=== PATIENT | female | born 1985 | race Caucasian/White ===

== ENCOUNTER 2016-12-27 12:59 | Emergency (ER) | payer SELFPAY ==
[2016-12-27 13:12] VITALS: BP 102/58
[2016-12-27] MEDS ORDERED: Ketorolac INJ* 60 MG/2 ML VIAL IM ONE (13:24)
--- NOTE | 2016-12-27 13:34 | UC ---
Abdominal Pain Female HPI - HPI Summary HPI Summary: 4 days of abd pain mid epigastric ruq pain, nausea and vomiting after eating and pain worsening with food, no fevers, decrease void and dark color - History of Current Complaint Chief Complaint: UCAbdominalPain Stated Complaint: ABDOMINAL PAIN Time Seen by Provider: 12/27/16 13:17 Hx Obtained From: Patient Hx Last Menstrual Period: 12/20/16 ?: No Onset/Duration: Sudden Onset, Lasting Days - 4 Timing: Constant Severity Initially: Moderate Severity Currently: Severe Pain Intensity: 10 Pain Scale Used: 0-10 Numeric Location: Discrete At: RUQ, Epigastric Radiates: No Character: Aching, Colicy Aggravating Factor(s): Food Alleviating Factor(s): Vomiting Associated Signs and Symptoms: Positive: Nausea, Vomiting Allergies/Adverse Reactions: Allergies Allergy/AdvReac Type Severity Reaction Status Date / Time No Known Allergies Allergy Verified 04/26/13 12:33 PMH/Surg Hx/FS Hx/Imm Hx Previously Healthy: Yes - Surgical History Surgical History: Yes Surgery Procedure, Year, and Place: biopsy of cervix mar 2013 - Family History Known Family History: Positive: None - Social History Occupation: Unemployed Lives: With Family Alcohol Use: Rare Substance Use Type: None Smoking Status (MU): Never Smoked Tobacco - Immunization History Most Recent Influenza Vaccination: Season Review of Systems Constitutional: Negative Skin: Negative Eyes: Negative ENT: Negative Respiratory: Negative Cardiovascular: Negative Gastrointestinal: Abdominal Pain, Vomiting, Nausea Genitourinary: Negative Motor: Negative Neurovascular: Negative Musculoskeletal: Negative Neurological: Negative Psychological: Negative Is Patient Immunocompromised?: No All Other Systems Reviewed And Are Negative: Yes Physical Exam Triage Information Reviewed: Yes Appearance: Ill-Appearing, Pain Distress, Thin Vital Signs: Initial Vital Signs Temp 98.1 F 12/27/16 13:03 Pulse 78 12/27/16 13:03 Resp 18 12/27/16 13:03 BP 102/58 12/27/16 13:03 Pulse Ox 100 12/27/16 13:03 Vital Signs Reviewed: Yes Eye Exam: Normal Eyes: Positive: Conjunctiva Clear ENT Exam: Normal ENT: Positive: Normal ENT inspection, Hearing grossly normal, Pharynx normal. Negative: Nasal congestion, Nasal drainage, Trismus, Muffled/hoarse voice Dental Exam: Normal Neck exam: Normal Neck: Positive: Supple, Nontender, No Lymphadenopathy Respiratory Exam: Normal Respiratory: Positive: Chest non-tender, Lungs clear, Normal breath sounds, No respiratory distress, No accessory muscle use Cardiovascular Exam: Normal Cardiovascular: Positive: RRR, No Murmur, Pulses Normal, Brisk Capillary Refill Abdominal Exam: Normal Abdomen Description: Positive: No Organomegaly, Soft. Negative: CVA Tenderness (R), CVA Tenderness (L) Bowel Sounds: Positive: Present Musculoskeletal Exam: Normal Musculoskeletal: Positive: Strength Intact, ROM Intact Neurological Exam: Normal Neurological: Positive: Alert, Muscle Tone Normal Psychological Exam: Normal Skin Exam: Normal Diagnostics - Laboratory Diagnostic Studies Completed/Ordered: ua + for bili, urobili, ketones, heme, leukoesterace (-) preg Abd Pain Female Course/Dx - Course Course Of Treatment: NPO, to [facility] [place] for further evaluation of abdomen pain - Differential Dx/Diagnosis Provider Diagnoses: Acute abdomen pain Discharge - Discharge Plan Condition: Stable Disposition: OTHER Discharge Disposition Comment: to [facility] [place] ED by private car Patient Education Materials: Acute Abdominal Pain (ED) Referrals: No Primary Care Phys,NOPCP [Primary Care Provider] - Additional Instructions: Please go directly to the [facility] Emergency Department For further care
== END 2016-12-27 14:10 ==
LOC: UCEAST 12:59
DX: R10.9 Unspecified abdominal pain (principal)
CPT/HCPCS: 81003; 84702; 87086; 99202; G0463; J1885

== ENCOUNTER 2016-12-27 15:11 | Inpatient (IN) | payer SELFPAY ==
[2016-12-27] MEDS ORDERED: Ondansetron INJ* 2 MG/ML VIAL IV ONE ×2 (15:58→19:28)
[2016-12-27] MEDS: NS 0.9% 1000 ML* 2,000 ML IV ONE (16:16)
[2016-12-27 16:41] LABS: Urine Bacteria Absent (Absent); Urine Bilirubin 2+ (Negative); Urine Glucose Negative (Negative); Urine Nitrite Negative (Negative)
[2016-12-27 16:44] LABS: Albumin 3.8 g/dL (3.2-5.2); Alkaline Phosphatase 352 U/L (34-104); Anion Gap 9 mmol/L (2-11); Blood Urea Nitrogen 12 mg/dL (6-24); C Reactive Protein 26.76 mg/L (< 5.00); CO2 Carbon Dioxide 28 mmol/L (22-32); Chloride 101 mmol/L (101-111); EGFR African American 91.6 (>60); EGFR Non-African American 71.2 (>60); Globulin 3.1 g/dL (2-4); Glucose 103 mg/dL (70-100); Lipase 178 U/L (11.0-82.0); Magnesium 1.7 mg/dL (1.9-2.7); Potassium 3.8 mmol/L (3.5-5.0); Sodium 138 mmol/L (133-145); Total Protein 6.9 g/dL (6.4-8.9)
[2016-12-27] MEDS ORDERED: Morphine INJ* 4 MG/ML 1 ML CARPUJECT IV ONE ×2 (16:45→18:32)
[2016-12-27] MEDS ORDERED: Magnesium Sulfate 2 GM IV* 2 GM/50 ML BAG IVPB ONE (16:45)
[2016-12-27 16:48] LABS: Add Diff/Slide Review? Manual Diff Added; Comments Flag Yes; Hematocrit 35 % (35-47); Hemoglobin 11.3 g/dl (12.0-16.0); Mean Corpuscular HGB Conc 33 g/dl (31-36); Mean Corpuscular Hemoglobin 25 pg (27-31); Mean Corpuscular Volume 75 fL (80-97); Mean Platelet Volume 7 um3 (7.4-10.4); Red Blood Count 4.59 10^6/ul (4.0-5.4); Red Cell Distribution Width 17 % (10.5-15); White Blood Count 5.2 10^3/ul (3.5-10.8)
[2016-12-27 17:00] LABS: ALT 1405 U/L (7-52); AST 1151 U/L (13-39)
[2016-12-27 17:20] LABS: Add Path Review? YES; Eosinophils % 1 % (0-6); Hypochromasia 1+; Immature Granulocytes 15 % (0-9); Microcytosis 1+; Neutrophil % 52 % (38-83); Reactive Lymph % 4 % (0-6)
--- NOTE | 2016-12-27 19:12 | RAD ---
HISTORY: Right upper quadrant pain. COMPARISONS: CT abdomen pelvis July 06, 2012 TECHNIQUE: Multiple transverse and longitudinal ultrasound images were obtained of the right upper quadrant. FINDINGS: LIVER: The liver is normal in dimensions and echogenicity. Normal hepatic and portal venous blood flow is duplicated with color flow imaging. There is no gross intrahepatic biliary duct dilatation. GALLBLADDER AND EXTRAHEPATIC BILIARY DUCT: The gallbladder appears to be contracted. There are heterogeneous and thickened fernandez measuring up to 2 cm in thickness. There is pericholecystic fluid. There are no stones or biliary sludge identified in the gallbladder lumen. The common bile duct measures a maximum diameter of 4 mm. PANCREAS: The portions of the pancreas not obscured by bowel gas are normal in appearance. RIGHT KIDNEY: The right kidney is normal in size, morphology and echogenicity. IMPRESSION: SONOGRAPHIC FINDINGS ARE MOST INDICATIVE OF ACALCULOUS CHOLECYSTITIS. CLINICALLY WARRANTED FURTHER CHARACTERIZATION COULD BE MADE WITH A HIDA SCAN.
[2016-12-27] MEDS ORDERED: HYDROmorphone INJ* 1 MG/ML CARPUJECT SYRINGE IV SLOW PU ONE (19:28)
[2016-12-27] MEDS ORDERED: Acetaminophen TAB* 325 MG PO PRN (19:30)
--- NOTE | 2016-12-27 19:34 | ED ---
Johnson Fallon Rebecca, scribed for Lyndsay Candelaria MD on 12/27/16 at 1630 . Abdominal Pain/Female - HPI Summary HPI Summary: Pt is a 31 y/o F who presents to ED referred from [facility] c/o abdominal pain for 4 days. Pain is in the RUQ and is currently moderate, ranked 7/10. Sx aggravated by food, alleviated by nothing. Additionally c/o decreased PO intake , abdominal bloating and vomiting. Pt reports vomiting every time that she tries to eat. FHx gallbladder disease (mother). - History of Current Complaint Chief Complaint: EDAbdPain Stated Complaint: ABD PAIN/DARK URINE Time Seen by Provider: 12/27/16 16:20 Hx Obtained From: Patient Hx Last Menstrual Period: 12/20/16 Onset/Duration: Lasting Days - 4 days, Still Present Severity Currently: Moderate Pain Intensity: 7 Pain Scale Used: 0-10 Numeric Location: Discrete At: RUQ Aggravating Factor(s): Food Alleviating Factor(s): Nothing Associated Signs and Symptoms: Positive: Vomiting, Other: - Decreased PO intake , abdominal bloating Allergies/Adverse Reactions: Allergies Allergy/AdvReac Type Severity Reaction Status Date / Time No Known Allergies Allergy Verified 04/26/13 12:33 PMH/Surg Hx/FS Hx/Imm Hx Endocrine/Hematology History: Denies: Hx Diabetes, Hx Thyroid Disease Cardiovascular History: Denies: Hx Hypertension Respiratory History: Denies: Hx Asthma, Hx Chronic Obstructive Pulmonary Disease (COPD) GI History: Denies: Hx Ulcer - Surgical History Surgery Procedure, Year, and Place: biopsy of cervix mar 2013 Infectious Disease History: No Infectious Disease History: Denies: Hx Clostridium Difficile, Hx Hepatitis, Hx Human Immunodeficiency Virus (HIV), Hx of Known/Suspected MRSA, Hx Shingles, Hx Tuberculosis, Hx Known/ Suspected VRE, Hx Known/Suspected VRSA, History Other Infectious Disease, Traveled Outside the [place] in Last 30 Days - Family History Known Family History: Positive: Other - Gallbladder disease (mother) - Social History Alcohol Use: Rare Substance Use Type: Reports: None Smoking Status (MU): Never Smoked Tobacco Review of Systems Negative: Fever Positive: Abdominal Pain, Vomiting, Other - Decreased PO intake, abdominal bloating All Other Systems Reviewed And Are Negative: Yes Physical Exam - Summary Physical Exam Summary: General: Mildly ill-appearing, mild pain distress Skin: Warm, Skin Color Reflects Adequate Perfusion, Dry Eyes: EOMI, JULI ENT: Pharynx normal, TMs normal Neck: Supple, nontender Respiratory: CTA, breath sounds present, no rhonchi, no wheezes, no rales Cardiovascular: RRR, no murmur, no rub, no gallop, Abdomen: Soft, RUQ and epigastric pain, Non-distended, no guarding, no rebound Bowel: Present Musculoskeletal: VALORIE, No edema Neuro: Sensory/motor intact, A&Ox3, CN intact 2-12 Psych: Affect/mood appropriate Triage Information Reviewed: Yes Vital Signs On Initial Exam: Initial Vitals Temp Pulse Resp BP Pulse Ox 98.2 F 77 15 112/69 100 12/27/16 15:13 12/27/16 15:13 12/27/16 15:13 12/27/16 15:13 12/27/16 15:13 Vital Signs Reviewed: Yes - Raysa Coma Scale Coma Scale Total: 15 Diagnostics - Vital Signs Vital Signs Temp Pulse Resp BP Pulse Ox 12/27/16 15:13 98.2 F 77 15 112/69 100 - Laboratory Lab Results: Lab Results 12/27/16 12/27/16 12/27/16 Range/Units 16:18 16:18 16:18 WBC 5.2 (3.5-10.8) 10^3/ul RBC 4.59 (4.0-5.4) 10^6/ul Hgb 11.3 L (12.0-16.0) g/dl Hct 35 (35-47) % MCV 75 L (80-97) fL MCH 25 L (27-31) pg MCHC 33 (31-36) g/dl RDW 17 H (10.5-15) % Plt Count 246 (150-450) 10^3/ul MPV 7 L (7.4-10.4) um3 Immature Gran % (Auto) 15 H (0-9) % Absolute Neuts (auto) 3.5 (1.5-7.7) 10^3/ul Absolute Lymphs (auto) 1.6 (1.0-4.8) 10^3/ul Absolute Monos (auto) 0.1 (0-0.8) 10^3/ul Absolute Eos (auto) 0.1 (0-0.6) 10^3/ul Absolute Basos (auto) 0 (0-0.2) 10^3/ul Absolute Nucleated RBC 0 10^3/ul Neutrophils % 52 (38-83) % Band Neutrophils % 15 H (0-8) % Lymphocytes % 27 (25-47) % Reactive Lymphs % 4 (0-6) % Monocytes % 1 (0-13) % Eosinophils % 1 (0-6) % Normal RBC Morphology Not Reportable Hypochromasia 1+ Microcytosis 1+ Hem Pathologist Commnt Pending Sodium 138 (133-145) mmol/L Potassium 3.8 (3.5-5.0) mmol/L Chloride 101 (101-111) mmol/L Carbon Dioxide 28 (22-32) mmol/L Anion Gap 9 (2-11) mmol/L BUN 12 (6-24) mg/dL Creatinine 0.92 (0.51-0.95) mg/dL Est GFR ( Amer) 91.6 (>60) Est GFR (Non-Af Amer) 71.2 (>60) BUN/Creatinine Ratio 13.0 (8-20) Glucose 103 H (70-100) mg/dL Lactic Acid 0.9 (0.5-2.0) mmol/L Calcium 9.0 (8.6-10.3) mg/dL Magnesium 1.7 L (1.9-2.7) mg/dL Total Bilirubin 2.70 H (0.2-1.0) mg/dL AST 1151 H (13-39) U/L ALT 1405 H (7-52) U/L Alkaline Phosphatase 352 H (34-104) U/L C-Reactive Protein 26.76 H (< 5.00) mg/L Total Protein 6.9 (6.4-8.9) g/dL Albumin 3.8 (3.2-5.2) g/dL Globulin 3.1 (2-4) g/dL Albumin/Globulin Ratio 1.2 (1-3) Lipase 178 H (11.0-82.0) U/L Beta HCG, Quant < 0.60 mIU/mL Urine Color Urine Appearance Urine pH (5-9) Ur Specific [place] (1.010-1.030) Urine Protein (Negative) Urine Ketones (Negative) Urine Blood (Negative) Urine Nitrate (Negative) Urine Bilirubin (Negative) Urine Urobilinogen (Negative) Ur Leukocyte Esterase (Negative) Urine WBC (Auto) (Absent) Urine RBC (Auto) (Absent) Ur Squamous Epith Cells (Absent) Urine Bacteria (Absent) Urine Glucose (Negative) 12/27/16 Range/Units 16:18 WBC (3.5-10.8) 10^3/ul RBC (4.0-5.4) 10^6/ul Hgb (12.0-16.0) g/dl Hct (35-47) % MCV (80-97) fL MCH (27-31) pg MCHC (31-36) g/dl RDW (10.5-15) % Plt Count (150-450) 10^3/ul MPV (7.4-10.4) um3 Immature Gran % (Auto) (0-9) % Absolute Neuts (auto) (1.5-7.7) 10^3/ul Absolute Lymphs (auto) (1.0-4.8) 10^3/ul Absolute Monos (auto) (0-0.8) 10^3/ul Absolute Eos (auto) (0-0.6) 10^3/ul Absolute Basos (auto) (0-0.2) 10^3/ul Absolute Nucleated RBC 10^3/ul Neutrophils % (38-83) % Band Neutrophils % (0-8) % Lymphocytes % (25-47) % Reactive Lymphs % (0-6) % Monocytes % (0-13) % Eosinophils % (0-6) % Normal RBC Morphology Hypochromasia Microcytosis Hem Pathologist Commnt Sodium (133-145) mmol/L Potassium (3.5-5.0) mmol/L Chloride (101-111) mmol/L Carbon Dioxide (22-32) mmol/L Anion Gap (2-11) mmol/L BUN (6-24) mg/dL Creatinine (0.51-0.95) mg/dL Est GFR ( Amer) (>60) Est GFR (Non-Af Amer) (>60) BUN/Creatinine Ratio (8-20) Glucose (70-100) mg/dL Lactic Acid (0.5-2.0) mmol/L Calcium (8.6-10.3) mg/dL Magnesium (1.9-2.7) mg/dL Total Bilirubin (0.2-1.0) mg/dL AST (13-39) U/L ALT (7-52) U/L Alkaline Phosphatase (34-104) U/L C-Reactive Protein (< 5.00) mg/L Total Protein (6.4-8.9) g/dL Albumin (3.2-5.2) g/dL Globulin (2-4) g/dL Albumin/Globulin Ratio (1-3) Lipase (11.0-82.0) U/L Beta HCG, Quant mIU/mL Urine Color Gita Urine Appearance Cloudy Urine pH 6.0 (5-9) Ur Specific [place] [address] 1.033 H (1.010-1.030) Urine Protein 2+(100 mg/dl) H (Negative) Urine Ketones Trace H (Negative) Urine Blood Negative (Negative) Urine Nitrate Negative (Negative) Urine Bilirubin 2+ H (Negative) Urine Urobilinogen Positive H (Negative) Ur Leukocyte Esterase Negative (Negative) Urine WBC (Auto) Trace(0-5/hpf) (Absent) Urine RBC (Auto) Absent (Absent) Ur Squamous Epith Cells Present H (Absent) Urine Bacteria Absent (Absent) Urine Glucose Negative (Negative) Result Diagrams: 12/27/16 16:18 12/27/16 16:18 Lab Statement: Any lab studies that have been ordered have been reviewed, and results considered in the medical decision making process. - Ultrasound No standard instances Ultrasound Interpretation: Positive (See Comments) - SONOGRAPHIC FINDINGS ARE MOST INDICATIVE OF ACALCULOUS CHOLECYSTITIS. CLINICALLY WARRANTED FURTHER CHARACTERIZATION COULD BE MADE WITH A HIDA SCAN. ED physician reviewed radiology report and agrees. Ultrasound Interpretation Completed By: Radiologist Abdominal Pain Fem Course/Dx - Course Course Of Treatment: 31 yo female with ruq pain and cholecystitis, pt with a bandemia of 15 and so zosyn was started when these labs came back before u/s was completed. Case was discussed with Drs. Beckford (admitting md) and Uvaldo (as requested by Analy). - Diagnoses Provider Diagnoses: Cholecystitis - Provider Notifications Discussed Care Of Patient With: Flo Beckford Time Discussed With Above Provider: 19:22 Instructed by Provider To: Other - Will put in orders and admit her and advised discusison with Dr. bailon so that she can be seen tomorrow. Discussed care of pt with Dr. Carlos Bailon at 1931 who will see the pt tomorrow. Discharge - Discharge Plan Condition: Stable Disposition: ADMITTED TO [facility] Referrals: No Primary Care Phys,NOPCP [Primary Care Provider] - The documentation as recorded by the Johnson mcduffie Rebecca accurately reflects the service I personally performed and the decisions made by me, Lyndsay Candelaria MD.
[2016-12-27] MEDS ORDERED: HYDROmorphone INJ* 2 MG/ML CARPUJECT SYRINGE ONE (19:36)
[2016-12-27] MEDS ORDERED: Zosyn per Pharmacy* NOTE FOLLOW UP PRN (20:31)
[2016-12-27] MEDS: NS 0.9% 1000 ML* 1,000 ML IV SCH (21:33)
[2016-12-27] MEDS: HYDROmorphone INJ* 2 MG/ML CARPUJECT SYRINGE IV SLOW PU PRN ×2 (21:38→23:15)
[2016-12-28] MEDS: HYDROmorphone INJ* 2 MG/ML CARPUJECT SYRINGE IV SLOW PU PRN ×10 (01:04→22:36)
[2016-12-28 06:33] LABS: Hematocrit 32 % (35-47); Hemoglobin 10.3 g/dl (12.0-16.0); Mean Corpuscular HGB Conc 33 g/dl (31-36); Mean Corpuscular Hemoglobin 25 pg (27-31); Mean Corpuscular Volume 76 fL (80-97); Mean Platelet Volume 7 um3 (7.4-10.4); Red Blood Count 4.17 10^6/ul (4.0-5.4); Red Cell Distribution Width 17 % (10.5-15); White Blood Count 5.4 10^3/ul (3.5-10.8)
[2016-12-28 06:36] LABS: Add Diff/Slide Review? Slide Review Added; Comments Flag Yes
[2016-12-28 06:53] LABS: Albumin 3.1 g/dL (3.2-5.2); BUN/Creatinine Ratio 12.6 (8-20); Calcium 8.1 mg/dL (8.6-10.3); Direct Bilirubin 2.5 mg/dL (0.03-0.18); EGFR African American 97.7 (>60); EGFR Non-African American 75.9 (>60); Globulin 2.4 g/dL (2-4); Indirect Bilirubin 0.8 mg/dL (0.3-1.0); Potassium 3.8 mmol/L (3.5-5.0); Total Bilirubin 3.3 mg/dL (0.2-1.0); Total Protein 5.5 g/dL (6.4-8.9)
[2016-12-28] MEDS: NS 0.9% 1000 ML* 1,000 ML IV SCH (07:54)
--- NOTE | 2016-12-28 11:35 | HP ---
CC: [facility]* HISTORY AND PHYSICAL: DATE OF ADMISSION: 12/27/16 PRIMARY CARE PROVIDER: No primary care provider. REASON FOR ADMISSION: Epigastric and right upper quadrant abdominal pain and dark urine. HISTORY OF PRESENT ILLNESS: Ms. Verenice Tinoco is a very pleasant 31-year-old woman who is healthy with no underlying medical conditions, who on Thursday of last week developed some mild epigastric discomfort that was associated with forceful vomiting. This occurred just about after everything that she ate, although she was able to keep liquids down. This is towards the end of her menstrual period and she felt these are most likely associated for several days, but pain became somewhat more severe in the right upper quadrant. She had no back pain. She noted no fever, shakes or chills. Later in the week, she noted the urine appeared to be somewhat darker. She may have had a laurie-colored stool. In addition, she has had no diarrhea, lower abdominal pain, or flank discomfort. The pain worsened. [facility] and was referred to the emergency room last night. In the emergency room, she was noted to be afebrile with stable vital signs. She underwent laboratory workup included a normal white blood count of 5.2 with a hemoglobin of 11.3, with an MCV at 75. She did have bands noted. On chemistries of note was a total bilirubin of 2.7 with AST and ALT of 1151 and 1405 respectively. Alkaline phosphatase of 352. She had mildly elevated C - reactive protein. Lipase was 178. Lactic acid was normal. Her beta-HCG was negative. She underwent an ultrasound of her gallbladder. I did review these images. It showed a markedly thickened gallbladder wall up to 2 cm, there was pericholecystic fluid. There were no gallstones or gallbladder sludge. The common bile duct measured approximately 4 mm. Findings were consistent and indicative of acute acalculous cholecystitis and consideration of HIDA was made. In light of her history and physical exam, laboratory workup, and ultrasound, she has been admitted to the surgical service. PAST MEDICAL HISTORY: Unremarkable. PAST SURGICAL HISTORY: None. MEDICATIONS: None. ALLERGIES: She has no known drug allergies. SOCIAL HISTORY: She is a [id number] mom. She is . She has 2 young boys. Does not use tobacco or alcohol. REVIEW OF SYSTEMS: Cerebrovascular: No dizziness or visual disturbance. Cardiovascular: No chest pain, shortness of breath. Pulmonary: No wheezing or hemoptysis. GI: As per above. She has never been told she has biliary tract or gallbladder disease. Her mother had her gallbladder removed when she was about her age. : She has a history of endometriosis and evaluation of abdominal pain several years ago, has not had symptoms per this recently. PHYSICAL EXAMINATION GENERAL: She is a pleasant, well-developed, well-nourished slender female appears to be in no apparent distress in bed. VITAL SIGNS: Temperature 97.7, pulse 65, blood pressure 109/69, respirations 16. HEENT: Her sclerae actually are anicteric. Oral mucosa is slightly dry. LUNGS: Clear to auscultation with normal respiratory effort. HEART: Regular rate and rhythm without murmurs, rubs, or gallops. ABDOMEN: Soft, nondistended. She has normoactive bowel sounds. There are no prior surgical incisions or hernias. She has some mild tenderness in the epigastric and right upper quadrant without mass, rebound or guarding. I appreciate no right lateral abdominal discomfort. PSYCHIATRIC: She is awake, alert, and oriented x3. She has normal judgment and insight. LABORATORY DATA: Laboratory values today, once again included normal white blood cell count of 5.4. Today, her bilirubin however is 3.3 with a direct component of 2.5. AST and ALT were 1194 and 1298 respectively. Lipase is 43. IMPRESSION: 1. Probable acute acalculous cholecystitis by ultrasound. 2. Jaundice with elevated total bilirubin and liver transaminases as well as alkaline phosphatase. 3. Ultrasound showing thickened gallbladder wall without gallstones with pericholecystic fluid and a normal sized common bile duct. All of her symptoms developed 5 days ago. PLAN: Findings are consistent with acute acalculous cholecystitis. It is difficult to associate the elevated total bilirubin however due to the duration of her symptoms, may well just be associated inflammation of the liver from the gallbladder without stones noted in the gallbladder as well as with normal common bile duct size less likely would be a common bile duct obstruction, although I feel this needs to be ruled out. Also non-surgical causes of her symptoms such as hepatitis need to be ruled out. 1. The patient has been admitted to the surgical service. 2. She has been kept n.p.o. 3. She has been started on IV Zosyn and IV fluids. 4. I will order an MRCP for today. 5. I am going to discuss her care with Dr. Carlos Bailon from Gastroenterology and obtain a consultation from him regarding other etiologies of her pain as above. 6. Discussed all of the above with the patient and her . her studies will be reviewed with our radiologist. She has had symptoms since Thursday and Thursday and there may be significant inflammation of the gallbladder, and another consideration will be percutaneous drainage. However, in the young healthy woman who is an excellent operative candidate, it would be nice to try to avoid this. However, she may be an increased risk for an open procedure with the laparoscope. I did discuss laparoscopic cholecystectomy with her and her , the risks but not limited to bleeding, infection, common bile duct injury, open procedures, abscess formation, and general anesthetics were all explained. We will proceed accordingly as above. [id number]/[facility] #: [id number] MTDD
[2016-12-28 12:58] LABS: Mono Internal Control QC Line Present
[2016-12-28] MEDS: Ondansetron INJ* 2 MG/ML VIAL IV PRN (20:17)
--- NOTE | 2016-12-28 21:38 | CONS ---
GASTROENTEROLOGY CONSULT: DATE: 12/28/16 CONSULTING PHYSICIAN: Flo Beckford MD.* REASON FOR CONSULTATION: Five-day illness with nausea, vomiting and abnormal liver functions. HISTORY: This 31-year-old mother of 2, working part-time at [employer], the last 2 weeks developed nausea and vomiting 5 days ago and exhausted, came to the emergency room yesterday, although she actually had not vomited that day. She had generally been in good health though, went through drug rehab in [place] in 2011 for chronic pain and morphine addiction. She denies any pain meds since then. Her son took ill on the weekend of 12/20/16. She states she was fine until Thursday12/23/16, when she developed nausea and then vomiting and anything she would take in resulted in more emesis. She said it was "like any illness." There was no overt fever, rash, or diarrhea. The nausea and vomiting and inability to eat continued on to 12/25/16, fairly late. Yesterday morning, she was actually feeling a little better, although there was abdominal pain. She ate half a breakfast sandwich and that stayed down. Nonetheless, she came to the emergency room. There, she was afebrile with a normal white count of 5.2. Gallbladder ultrasound showed a contracted gallbladder 4 mm duct and some weakness around the gallbladder. After focus of right upper quadrant pain, biliary disease was felt likely and in the crop picker hour, she was admitted. She states she has never had anything like this before. Her diet really has not changed. She received hepatitis A and B vaccines (she is pretty sure on this point) in the . She does not take any Advil or Aleve. Her alcohol intake is low. She has numerous tattoos. She was status post hepatitis C during the drug rehab and was negative and that was released to her. She had dabbled in intravenous drugs prior to the rehab. She has not used any since. Her is not aware of that remote history and she is clear on confidentiality regarding those issues. PAST MEDICAL HISTORY: 1. 3, para 2, sons age 7 and 2. 2. Chronic pain syndrome - through drug rehab in 2011. 3. Heavy periods. 4. Mild microcytic anemia - at presentation hemoglobin 11.3, hematocrit 35, MCV 75. SOCIAL HISTORY: She lives with her boyfriend of 10 years, which she refers to as her . He is father of the children. They live in an attached apartment with their in-laws. 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 Her previous physician had been Dr. Lim in [place]. REVIEW OF SYSTEMS: No history of hepatitis. There is no history of palpitations, syncope, vasovagal episodes, ME, valvular disease, mononucleosis, gross hematuria, diarrhea, or skin rash. EXAM: She is the young woman in bed appearing in no overt distress at this moment, although nurses say that she has been complaining of left pain. She is afebrile. There are numerous tattoos anterior and posterior, mostly with floral designs. There is no obvious rash and nothing in her shins. HEENT exam is unremarkable. She has no adenopathy. Lungs are clear and heart sounds are normal. The abdomen is symmetric with normal bowel sounds, soft. There is no particular guarding. Rectal deferred. Extremities: Unremarkable. Neurologic is nonfocal. She is a good historian. LABS: Today, bilirubin 3.3, AST 1194, ALT 1298, alkaline phosphatase 288, albumin 3.1. Hepatitis panel pending. Monospot pending. Right upper quadrant ultrasound - yesterday, gallbladder contracted and a questions of acalculous cholecystitis. IMPRESSION AND PLAN: This 31-year-old woman presents with a 5-day illness of nausea, vomiting and no other helpful stigmata such as overt fever, rash, etc. Her elevated liver function tests suggest an acute hepatitic process possibly extending a little before the onset of the vomiting. The ultrasound result needs to be taken with caution as she had eaten earlier on the day and the gallbladder was contracted. Common duct is 4 mm and clearly there is no suggestions that biliary pluming process could contribute at all to the abnormal LFTs. Confidential results of her acute hepatitis panel will be most relevant. If her history is accurate, the hepatitis A vaccination should show positive IgG. [id number]/[facility] #: [id number] MTDD
[2016-12-29] MEDS: HYDROmorphone INJ* 2 MG/ML CARPUJECT SYRINGE IV SLOW PU PRN ×10 (00:15→22:12)
[2016-12-29] MEDS: NS 0.9% 1000 ML* 1,000 ML IV SCH ×2 (04:38→17:31)
[2016-12-29 05:49] LABS: Hematocrit 32 % (35-47); Hemoglobin 10.3 g/dl (12.0-16.0); Mean Corpuscular HGB Conc 33 g/dl (31-36); Mean Corpuscular Hemoglobin 25 pg (27-31); Mean Corpuscular Volume 76 fL (80-97); Mean Platelet Volume 7 um3 (7.4-10.4); Red Blood Count 4.16 10^6/ul (4.0-5.4); Red Cell Distribution Width 17 % (10.5-15); White Blood Count 4.4 10^3/ul (3.5-10.8)
[2016-12-29 05:59] LABS: Add Diff/Slide Review? Slide Review Added; Comments Flag Yes
[2016-12-29 06:09] LABS: BUN/Creatinine Ratio 9.1 (8-20); Calcium 7.9 mg/dL (8.6-10.3); Direct Bilirubin 3.3 mg/dL (0.03-0.18); EGFR African American 112.4 (>60); EGFR Non-African American 87.4 (>60); Globulin 2.4 g/dL (2-4); Indirect Bilirubin 1.2 mg/dL (0.3-1.0); Potassium 3.9 mmol/L (3.5-5.0); Total Bilirubin 4.5 mg/dL (0.2-1.0); Total Protein 5.4 g/dL (6.4-8.9)
[2016-12-29 06:36] LABS: Eosinophils % 1 % (0-6); Neutrophil % 50 % (38-83); Reactive Lymph % 21 % (0-6)
[2016-12-29 06:37] LABS: Hypochromasia 1+; Microcytosis 1+
[2016-12-29 06:44] LABS: Add Path Review? YES
[2016-12-29] MEDS: Ondansetron INJ* 2 MG/ML VIAL IV PRN ×2 (07:45→14:30)
[2016-12-29 10:12] LABS: Call Hep C TO BE CALLED
--- NOTE | 2016-12-29 11:51 | RAD ---
Indication: Gallstones. Real-time sonography of the right upper quadrant was performed. The liver is enlarged with no focal lesions. The measures 20 cm in length. Small right pleural effusion is noted. No intrahepatic ductal dilatation is noted. The gallbladder measures is partially contracted. No gallstones are noted. Gallbladder wall measures up to 1.4 cm. Kidney measures 10.8 x 4.1 x 4.8 cm with no hydronephrosis. The pancreas, aorta and inferior vena cava are unremarkable. IMPRESSION: Gallbladder wall thickening measuring up to 14 mm. Clinical correlation with cholecystitis is suggested. No gallstones are noted. Right pleural effusion is noted.
--- NOTE | 2016-12-29 14:21 | RAD ---
Indication: RIGHT upper quadrant pain. Elevated LFTs. Question cholecystitis. Comparison: December 29, 2016 ultrasound. Technique: 6.300 mCi of Tc-99m Choletec was injected IV. Serial anterior images of the abdomen were obtained immediately following radiopharmaceutical administration to 60 minutes. Delayed images obtained at 1.25 and 1.5 hours. Report: There is homogeneous hepatic uptake however excretion of radiopharmaceutical is delayed consistent with hepatocellular dysfunction. Significant persistent radiopharmaceutical in the liver on the 1.5 hour delayed image. The gallbladder is visualized at 25 minutes confirming patency of the cystic duct. Bowel activity visualized at approximately 40 minutes confirming patency of the common bile duct. IMPRESSION: 1. Patent cystic and common bile ducts. No evidence for acute cholecystitis. 2. Hepatocellular dysfunction.
--- NOTE | 2016-12-29 15:17 | PN ---
Progress Note - Progress Note Date of Service: 12/29/16 SOAP: Subjective: Still with right upper abdominal and epigastric pain Hungry No N/V Objective: Temp Pulse Resp BP Pulse Ox 98.0 F 73 16 118/71 100 12/29/16 11:15 12/29/16 11:15 12/29/16 14:21 12/29/16 11:15 12/29/16 11:15 PEX: Comfortable Lungs are clear Abd is soft and non-distended. Bowel sounds are present. Tenderness in the right upper quadrant and epigastric areas without peritoneal irritation. Laboratory Results - last 24 hr 12/28/16 12/29/16 12/29/16 10:50 05:21 05:21 WBC 4.4 RBC 4.16 Hgb 10.3 L Hct 32 L MCV 76 L MCH 25 L MCHC 33 RDW 17 H Plt Count 154 MPV 7 L Neut % (Auto) 38.5 Lymph % (Auto) 53.7 H [place] % (Auto) 5.9 Eos % (Auto) 1.4 Baso % (Auto) 0.5 Absolute Neuts (auto) 1.7 Absolute Lymphs (auto) 2.4 Absolute Monos (auto) 0.3 Absolute Eos (auto) 0.1 Absolute Basos (auto) 0 Absolute Nucleated RBC 0.01 Neutrophils % 50 Lymphocytes % 23 L Reactive Lymphs % 21 H D Monocytes % 4 Eosinophils % 1 Basophils % 1 Nucleated RBC % 0.1 Normal RBC Morphology Not Reportable Hypochromasia 1+ Microcytosis 1+ Sodium 132 L Potassium 3.9 Chloride 103 Carbon Dioxide 23 Anion Gap 6 BUN 7 Creatinine 0.77 Est GFR ( Amer) 112.4 Est GFR (Non-Af Amer) 87.4 BUN/Creatinine Ratio 9.1 Glucose 77 Calcium 7.9 L Total Bilirubin 4.50 H Direct Bilirubin 3.30 H Indirect Bilirubin 1.2 H AST 1459 H ALT 1469 H Alkaline Phosphatase 245 H Total Protein 5.4 L Albumin 3.0 L Globulin 2.4 Albumin/Globulin Ratio 1.3 Hepatitis A IgM Ab Nonreactive Hep Bs Antigen Nonreactive Hep B Core IgM Ab Nonreactive Hepatitis C Antibody High reactive H HIDA Scan noted--No sign of acute cholecystitis--cystic duct patent. US report noted Hep C result noted Assessment: Right upper abdominal pain Apparently new Hepatitis C infection--HIDA scan shows no acute cholecystitis Plan: No plans for cholecystectomy Hospitalist consult for manangement, Dr. Bailon also following patient. Will defer management to GI and hospitalist service.
--- NOTE | 2016-12-29 20:57 | CONS ---
HOSPITAL MEDICINE CONSULTATION REPORT: DATE OF CONSULTATION: 12/29/16 PRIMARY CARE PHYSICIAN: None. ATTENDING PHYSICIAN: Flo Beckford MD CONSULTING PHYSICIAN: Cornelius Mccullough MD (dictation provided by Moira Montano NP) REASON FOR CONSULTATION: Medical co-management in the patient admitted with elevated LFTs and right upper quadrant pain. HISTORY OF PRESENT ILLNESS: Ms. Tinoco is a 31-year-old female with no significant past medical history who presented to the hospital on 12/28/16 with concern for nausea, vomiting, and right upper quadrant pain. Please see the dictated H and P from Dr. Beckford for complete details. In brief, the patient reported that she developed nausea and vomiting on last Thursday. She had some discomfort in her epigastric region. She felt that this was likely either related to her menstrual cycle or perhaps just a stomach bug; however, the pain seemed to move into the right upper quadrant and became quite severe. She denies any diarrhea. She had poor oral intake due to the nausea. She had no fever. Ms. Tinoco presented to the emergency room on 12/27/16 at which time she had markedly abnormal LFTs with a total bilirubin of 2.71, AST 1151, ALT 1405, alk phos 352. She had no leukocytosis or fever. The patient was admitted by Dr. Beckford and then seen in consultation by Dr. Sneed. Gallbladder ultrasound in the emergency room showed concern for acute acalculous cholecystitis. Remainder of her workup shows that she is positive for hepatitis C. She reports that she has a history of IV drug use, but this was over 10 years ago. She feels quite certain that she was tested for hepatitis C at the completion of her rehab treatment and was negative. She denies any recent or current drug use. PAST MEDICAL HISTORY: None. MEDICATIONS: None. ALLERGIES: None. FAMILY HISTORY: The patient has 2 children, lives with her partner, though she is not . Reports that her partner would be the healthcare proxy whose name is Yoshi Bobo. SOCIAL HISTORY: The patient has had some exposure to IV drug use in the past. She states there is no current drug use, IV or otherwise. No report of tobacco use or alcohol use. REVIEW OF SYSTEMS: A 14-point review of systems was completed with Ms. Tinoco and all those not mentioned above were negative. PHYSICAL EXAMINATION: Vital Signs: Temperature 98.0, pulse rate 73, respiratory rate 16, O2 saturation 100% on room air, blood pressure 118/71. General: Ms. Tinoco is sitting up in the bed. She is in no acute distress. Neuro: She is alert. She is oriented x3. She moves all extremities equally. There is no facial asymmetry or focal weakness. Extraocular movements are intact. Heart: S1, S2. No murmur, rub, or gallop and regular. Lungs: Clear to auscultation bilaterally with no accessory muscle use and good aeration. Abdomen: Soft. There is tenderness in the right upper quadrant. Hepatomegaly is present. Bowel sounds are positive. There is tenderness in the right upper quadrant, but not otherwise. Extremities: No cyanosis or edema. Skin: Intact. LABORATORY DATA/DIAGNOSTIC STUDIES: WBC today is 4.4, hemoglobin 10.3, hematocrit 32. White blood cell count on arrival was 5.2. She had bandemia of 15 on arrival. Today, that is resolved but she does have lymphocytosis with reactive lymphocytes of 21. Sodium 132, potassium 3.9, chloride 103, serum bicarbonate 23, BUN 7, creatinine 0.77, glucose 77. Total bilirubin on arrival 2.7; today, it is 4.5. Direct bilirubin is 3.3, indirect bilirubin 1.2, AST 1459 , ALT 1469, alk phos 245. CRP on arrival was 26.76. Gallbladder ultrasound on arrival shows concern for acalculous cholecystitis. ASSESSMENT/PLAN: Ms. Tinoco is a 31-year-old female with no significant past medical history who presented to the emergency room on 12/27/16 with concern for right upper quadrant pain with nausea and vomiting, found to have dramatically elevated LFTs and concern for possible acalculous cholecystitis. The patient was admitted to the hospital by Dr. Beckford from surgical services with consultation from Dr. Bailon from Gastroenterology. Hospitalist medicine has been consulted for medical co-management and likely to take over as attending physician in this complicated medical case. Our recommendations are as follows: 1. Nausea, vomiting, right upper quadrant pain, and elevated LFTs. It is not clear exactly what is driving Ms. Tinoco's liver dysfunction. She does continue to have a thickened gallbladder wall measuring up to 14 mm on the gallbladder ultrasound from today. Her LFTs continue to rise. She does have a positive hepatitis C antibody. It is unclear from this whether or not this is a current acute infection or reflective of a chronic infection. I have added on a hepatitis C viral load. The patient does have HIDA scan ordered to further assess the biliary tract. Monoscreen was negative. 2. DVT prophylaxis with early mobility. 3. Code status is full code. TIME SPENT: Approximately 60 minutes were spent in the consultation of this patient, more than half the time spent with the patient at the bedside, reviewing the events leading up to this hospitalization, performing the physical examination, and reviewing the plan of care. MOIRA MONTANO, PERSONAL DEVELOPMENT MENTOR [id number]/CPS #: [id number] JAY
[2016-12-30] MEDS: HYDROmorphone INJ* 2 MG/ML CARPUJECT SYRINGE IV SLOW PU PRN ×8 (01:35→22:21)
[2016-12-30] MEDS: NS 0.9% 1000 ML* 1,000 ML IV SCH ×2 (01:42→10:00)
[2016-12-30] MEDS: Ondansetron INJ* 2 MG/ML VIAL IV PRN ×2 (01:48→09:23)
--- NOTE | 2016-12-30 13:29 | PN ---
Progress Note - Progress Note Date of Service: 12/30/16 SOAP: Subjective: Still with about the same right upper quadrant pain She is hungry and tolerating soft diet in small quantities. Passing flatus Objective: Temp Pulse Resp BP Pulse Ox 98.0 F 63 16 118/60 98 12/30/16 11:30 12/30/16 11:30 12/30/16 13:04 12/30/16 11:30 12/30/16 11:30 Intake & Output 12/28/16 12/29/16 12/30/16 12/31/16 06:59 06:59 06:59 06:59 Intake Total 3364 4883 1608 1452 Output Total 450 2625 3500 1100 Balance 2914 2258 -1892 352 Weight 150 lb Intake: IV Fluids 3257 2228 1162 1027 NS (0.9%) 984 1047 922 Zosyn 107 149 105 IVPB 107 2055 206 NS (0.9%) 1986 Zosyn 69 206 Oral 0 600 240 425 Output: Urine 450 2625 3500 1100 PEX: Comfortable Abd is soft and non-distended. Bowel sounds are present. There is tenderness in the right upper quadrant with some guarding. No mass or rebound tenderness. No labs today Monospot negative Assessment: Right upper abdominal pain-HepC antibody positive-new HIDA negative for acute cholecystitis. Plan: ID Dr. Howard to see today--GI and Hospitalist also following. No plans for cholecystectomy-I do not feel that this is acute cholecystitis Repeat labs in AM Diet as tolerated.
--- NOTE | 2016-12-30 13:50 | PN ---
Progress Note - Progress Note Date of Service: 12/30/16 SOAP: Subjective: [] Patient still has constant belly pain 09/15. The pain is most intense in epigastric region. Pain is also found in hypogastric region and RUQ. The patient also feels bloated despite not eating a lot. Patient has been on clear liquids since yesterday. She had yogurt this morning. She is hungry and plans to have mashed potatoes for lunch. Patient admits to nausea, but denies vomiting. Her urine color has changed from dark red to dark orange with the IV fluids. Patient had a small bowel movement today. CURRENT MEDICATIONS Hydromorphone HCl (Dilaudid Inj*) 2 mg IV SLOW PU Q2H PRN PRN Reason: PAIN Last Admin: 12/30/16 13:04 Dose: 2 mg Sodium Chloride (Ns 0.9% 1000 Ml*) 1,000 mls @ 125 mls/hr IV PER RATE LAURA Last Admin: 12/30/16 01:42 Dose: 125 mls/hr Piperacillin Sod/Tazobactam (Sod 3.375 gm/ Sodium Chloride) 100 mls @ 25 mls/ hr IVPB Q8H LAURA Last Admin: 12/30/16 05:23 Dose: 25 mls/hr Ondansetron HCl (Zofran Inj*) 4 mg IV Q6H PRN PRN Reason: NAUSEA Last Admin: 12/30/16 09:23 Dose: 4 mg Objective: [] Vital Signs - 8 hr 12/30/16 12/30/16 12/30/16 06:13 07:37 09:27 Temperature 98.1 F Pulse Rate 54 Respiratory 14 16 13 Rate Blood Pressure 118/66 (mmHg) O2 Sat by Pulse 98 Oximetry 12/30/16 12/30/16 12/30/16 09:30 10:27 11:30 Temperature 98.0 F Pulse Rate 63 Respiratory 16 16 16 Rate Blood Pressure 118/60 (mmHg) O2 Sat by Pulse 98 Oximetry 12/30/16 13:04 Temperature Pulse Rate Respiratory 16 Rate Blood Pressure (mmHg) O2 Sat by Pulse Oximetry 12/27/16 12/27/16 12/27/16 16:18 16:18 16:18 WBC 5.2 RBC 4.59 Hgb 11.3 L Hct 35 MCV 75 L MCH 25 L MCHC 33 RDW 17 H Plt Count 246 MPV 7 L Immature Gran % (Auto) 15 H Neut % (Auto) Lymph % (Auto) [place] % (Auto) Eos % (Auto) Baso % (Auto) Absolute Neuts (auto) 3.5 Absolute Lymphs (auto) 1.6 Absolute Monos (auto) 0.1 Absolute Eos (auto) 0.1 Absolute Basos (auto) 0 Absolute Nucleated RBC 0 Neutrophils % 52 Band Neutrophils % 15 H Lymphocytes % 27 Reactive Lymphs % 4 Monocytes % 1 Eosinophils % 1 Basophils % Nucleated RBC % Normal RBC Morphology Not Reportable Hypochromasia 1+ Microcytosis 1+ Hem Pathologist Commnt Sodium 138 Potassium 3.8 Chloride 101 Carbon Dioxide 28 Anion Gap 9 BUN 12 Creatinine 0.92 Est GFR ( Amer) 91.6 Est GFR (Non-Af Amer) 71.2 BUN/Creatinine Ratio 13.0 Glucose 103 H Lactic Acid 0.9 Calcium 9.0 Magnesium 1.7 L Total Bilirubin 2.70 H Direct Bilirubin Indirect Bilirubin AST 1151 H ALT 1405 H Alkaline Phosphatase 352 H C-Reactive Protein 26.76 H Total Protein 6.9 Albumin 3.8 Globulin 3.1 Albumin/Globulin Ratio 1.2 Lipase 178 H TSH Beta HCG, Quant < 0.60 Urine Color Urine Appearance Urine pH Ur Specific [place] Urine Protein Urine Ketones Urine Blood Urine Nitrate Urine Bilirubin Urine Urobilinogen Ur Leukocyte Esterase Urine WBC (Auto) Urine RBC (Auto) Ur Squamous Epith Cells Urine Bacteria Urine Glucose Hepatitis A IgM Ab Hep Bs Antigen Hep B Core IgM Ab Hepatitis C Antibody Monoscreen 12/27/16 12/28/16 12/28/16 16:18 06:26 06:26 WBC 5.4 RBC 4.17 Hgb 10.3 L Hct 32 L MCV 76 L MCH 25 L MCHC 33 RDW 17 H Plt Count 162 MPV 7 L Immature Gran % (Auto) Neut % (Auto) 41.9 Lymph % (Auto) 47.7 H [place] % (Auto) 8.4 Eos % (Auto) 1.5 Baso % (Auto) 0.5 Absolute Neuts (auto) 2.3 Absolute Lymphs (auto) 2.6 Absolute Monos (auto) 0.5 Absolute Eos (auto) 0.1 Absolute Basos (auto) 0 Absolute Nucleated RBC 0.01 Neutrophils % Band Neutrophils % Lymphocytes % Reactive Lymphs % Monocytes % Eosinophils % Basophils % Nucleated RBC % 0.1 Normal RBC Morphology Hypochromasia Microcytosis Hem Pathologist Commnt Sodium 138 Potassium 3.8 Chloride 108 Carbon Dioxide 22 Anion Gap 8 BUN 11 Creatinine 0.87 Est GFR ( Amer) 97.7 Est GFR (Non-Af Amer) 75.9 BUN/Creatinine Ratio 12.6 Glucose 83 Lactic Acid Calcium 8.1 L Magnesium Total Bilirubin 3.30 H Direct Bilirubin 2.50 H Indirect Bilirubin 0.8 AST 1194 H ALT 1298 H Alkaline Phosphatase 288 H C-Reactive Protein Total Protein 5.5 L Albumin 3.1 L Globulin 2.4 Albumin/Globulin Ratio 1.3 Lipase 43 TSH Beta HCG, Quant Urine Color Gita Urine Appearance Cloudy Urine pH 6.0 Ur Specific [place] 1.033 H Urine Protein 2+(100 mg/dl) H Urine Ketones Trace H Urine Blood Negative Urine Nitrate Negative Urine Bilirubin 2+ H Urine Urobilinogen Positive H Ur Leukocyte Esterase Negative Urine WBC (Auto) Trace(0-5/hpf) Urine RBC (Auto) Absent Ur Squamous Epith Cells Present H Urine Bacteria Absent Urine Glucose Negative Hepatitis A IgM Ab Hep Bs Antigen Hep B Core IgM Ab Hepatitis C Antibody Monoscreen 12/28/16 12/28/16 12/29/16 10:50 10:50 05:21 WBC 4.4 RBC 4.16 Hgb 10.3 L Hct 32 L MCV 76 L MCH 25 L MCHC 33 RDW 17 H Plt Count 154 MPV 7 L Immature Gran % (Auto) Neut % (Auto) 38.5 Lymph % (Auto) 53.7 H [place] % (Auto) 5.9 Eos % (Auto) 1.4 Baso % (Auto) 0.5 Absolute Neuts (auto) 1.7 Absolute Lymphs (auto) 2.4 Absolute Monos (auto) 0.3 Absolute Eos (auto) 0.1 Absolute Basos (auto) 0 Absolute Nucleated RBC 0.01 Neutrophils % 50 Band Neutrophils % Lymphocytes % 23 L Reactive Lymphs % 21 H D Monocytes % 4 Eosinophils % 1 Basophils % 1 Nucleated RBC % 0.1 Normal RBC Morphology Not Reportable Hypochromasia 1+ Microcytosis 1+ Hem Pathologist Commnt Sodium Potassium Chloride Carbon Dioxide Anion Gap BUN Creatinine Est GFR ( Amer) Est GFR (Non-Af Amer) BUN/Creatinine Ratio Glucose Lactic Acid Calcium Magnesium Total Bilirubin Direct Bilirubin Indirect Bilirubin AST ALT Alkaline Phosphatase C-Reactive Protein Total Protein Albumin Globulin Albumin/Globulin Ratio Lipase TSH Beta HCG, Quant Urine Color Urine Appearance Urine pH Ur Specific [place] Urine Protein Urine Ketones Urine Blood Urine Nitrate Urine Bilirubin Urine Urobilinogen Ur Leukocyte Esterase Urine WBC (Auto) Urine RBC (Auto) Ur Squamous Epith Cells Urine Bacteria Urine Glucose Hepatitis A IgM Ab Nonreactive Hep Bs Antigen Nonreactive Hep B Core IgM Ab Nonreactive Hepatitis C Antibody High reactive H Monoscreen Negative 12/29/16 12/30/16 05:21 05:03 WBC RBC Hgb Hct MCV MCH MCHC RDW Plt Count MPV Immature Gran % (Auto) Neut % (Auto) Lymph % (Auto) [place] % (Auto) Eos % (Auto) Baso % (Auto) Absolute Neuts (auto) Absolute Lymphs (auto) Absolute Monos (auto) Absolute Eos (auto) Absolute Basos (auto) Absolute Nucleated RBC Neutrophils % Band Neutrophils % Lymphocytes % Reactive Lymphs % Monocytes % Eosinophils % Basophils % Nucleated RBC % Normal RBC Morphology Hypochromasia Microcytosis Hem Pathologist Commnt Sodium 132 L Potassium 3.9 Chloride 103 Carbon Dioxide 23 Anion Gap 6 BUN 7 Creatinine 0.77 Est GFR ( Amer) 112.4 Est GFR (Non-Af Amer) 87.4 BUN/Creatinine Ratio 9.1 Glucose 77 Lactic Acid Calcium 7.9 L Magnesium Total Bilirubin 4.50 H Direct Bilirubin 3.30 H Indirect Bilirubin 1.2 H AST 1459 H ALT 1469 H Alkaline Phosphatase 245 H C-Reactive Protein Total Protein 5.4 L Albumin 3.0 L Globulin 2.4 Albumin/Globulin Ratio 1.3 Lipase TSH 3.04 Beta HCG, Quant Urine Color Urine Appearance Urine pH Ur Specific [place] Urine Protein Urine Ketones Urine Blood Urine Nitrate Urine Bilirubin Urine Urobilinogen Ur Leukocyte Esterase Urine WBC (Auto) Urine RBC (Auto) Ur Squamous Epith Cells Urine Bacteria Urine Glucose Hepatitis A IgM Ab Hep Bs Antigen Hep B Core IgM Ab Hepatitis C Antibody Monoscreen AST and ALT have been in the thousands since admission Alkaline Phosphatase is also elevated, but has decreased slightly Bilirubin is also elevated, and has increased recently Her lipase was 3X more than upper normal limit, but has normalized. ABDOMINAL U/S Gallbladder wall thickening up to 2 cm. No gallstones found. General impression is acalculous cholecystitis. Liver is enlarged, measuring 20 cm. HIDA SCAN There are no stones/obstruction in the cystic or common bile ducts. There is hepatocellular dysfunction. Hepatitis C antibody is elevated. PHYSICAL EXAM Abdomen: soft, non-distended; bowel sounds are normoactive; tender to palpation in hypogastric, RUQ, and epigastric regions. Assessment: [] Based on HIDA scan, acute cholecystitis is not likely. Her dark urine is caused by excretion of excess bilirubin. Patient has at history of IV drug use. Possible chronic Hepatitis C. Not sure the GI symptoms are caused by it. Plan: [] Laparoscopic cholecystectomy is not indicated at this time. Patient is planned to be seen by infectious disease, gastoenterology, and hospitalist doctors. Diet as tolerated. Repeat labs in the morning.
[2016-12-30] MEDS ORDERED: NS 0.9% 1000 ML* 1,000 ML IV SCH (17:15)
--- NOTE | 2016-12-30 17:26 | PN ---
Subjective Date of Service: 12/30/16 Interval History: Overall feels better. No more nausea, has some appetite. Abd pain about the same. No BM. Tolerating diet OK. Objective Active Medications: Hydromorphone HCl (Dilaudid Inj*) 2 mg IV SLOW PU Q2H PRN PRN Reason: PAIN Last Admin: 12/30/16 15:22 Dose: 2 mg Sodium Chloride (Ns 0.9% 1000 Ml*) 1,000 mls @ 60 mls/hr IV PER RATE LAURA Omeprazole (Prilosec Cap*) 20 mg PO 0600 LAURA Ondansetron HCl (Zofran Inj*) 4 mg IV Q6H PRN PRN Reason: NAUSEA Last Admin: 12/30/16 09:23 Dose: 4 mg Vital Signs 12/29/16 12/29/16 12/29/16 17:33 18:33 19:45 Temperature Pulse Rate Respiratory 16 16 16 Rate Blood Pressure (mmHg) O2 Sat by Pulse Oximetry 12/29/16 12/29/16 12/29/16 19:46 19:47 20:46 Temperature 98.7 F Pulse Rate 71 Respiratory 16 16 16 Rate Blood Pressure 125/63 (mmHg) O2 Sat by Pulse 99 Oximetry 12/29/16 12/29/16 12/29/16 22:12 22:59 23:12 Temperature 97.9 F Pulse Rate 74 Respiratory 14 16 16 Rate Blood Pressure 125/73 (mmHg) O2 Sat by Pulse 98 Oximetry 12/30/16 12/30/16 12/30/16 01:35 02:35 04:20 Temperature 98.2 F Pulse Rate 57 Respiratory 14 16 14 Rate Blood Pressure 119/73 (mmHg) O2 Sat by Pulse 98 Oximetry 12/30/16 12/30/16 12/30/16 05:13 06:13 07:37 Temperature 98.1 F Pulse Rate 54 Respiratory 18 14 16 Rate Blood Pressure 118/66 (mmHg) O2 Sat by Pulse 98 Oximetry 12/30/16 12/30/16 12/30/16 09:27 09:30 10:27 Temperature Pulse Rate Respiratory 13 16 16 Rate Blood Pressure (mmHg) O2 Sat by Pulse Oximetry 12/30/16 12/30/16 12/30/16 11:30 13:04 14:04 Temperature 98.0 F Pulse Rate 63 Respiratory 16 16 16 Rate Blood Pressure 118/60 (mmHg) O2 Sat by Pulse 98 Oximetry 12/30/16 12/30/16 12/30/16 15:22 16:04 16:22 Temperature 97.5 F Pulse Rate 68 Respiratory 16 12 16 Rate Blood Pressure 124/75 (mmHg) O2 Sat by Pulse 97 Oximetry Oxygen Devices in Use Now: None Appearance: Alert, partly up in bed. In good spirits. Looks comfortable. Neck: NL Appearance and Movements; NL JVP, No Thyroid Enlargement, Masses Respiratory: Symmetrical Chest Expansion and Respiratory Effort, Clear to Auscultation, Clear to Percussion Abdominal: No Hepatosplenomegaly, - - Soft, mild RUQ tenderness. Active BS. Extremities: No Edema, No Clubbing, Cyanosis Skin: No Rash or Ulcers, No Nodules or Sclerosis, - Neurological: Alert and Oriented x 3, NL Sensation Result Diagrams: 12/29/16 05:21 12/29/16 05:21 Additional Lab and Data: Lab Results 12/27/16 12/27/16 12/27/16 Range/Units 16:18 16:18 16:18 WBC 5.2 (3.5-10.8) 10^3/ul RBC 4.59 (4.0-5.4) 10^6/ul Hgb 11.3 L (12.0-16.0) g/dl Hct 35 (35-47) % MCV 75 L (80-97) fL MCH 25 L (27-31) pg MCHC 33 (31-36) g/dl RDW 17 H (10.5-15) % Plt Count 246 (150-450) 10^3/ul MPV 7 L (7.4-10.4) um3 Immature Gran % (Auto) 15 H (0-9) % Absolute Neuts (auto) 3.5 (1.5-7.7) 10^3/ul Absolute Lymphs (auto) 1.6 (1.0-4.8) 10^3/ul Absolute Monos (auto) 0.1 (0-0.8) 10^3/ul Absolute Eos (auto) 0.1 (0-0.6) 10^3/ul Absolute Basos (auto) 0 (0-0.2) 10^3/ul Absolute Nucleated RBC 0 10^3/ul Neutrophils % 52 (38-83) % Band Neutrophils % 15 H (0-8) % Lymphocytes % 27 (25-47) % Reactive Lymphs % 4 (0-6) % Monocytes % 1 (0-13) % Eosinophils % 1 (0-6) % Normal RBC Morphology Not Reportable Hypochromasia 1+ Microcytosis 1+ Hem Pathologist Commnt Pending Sodium 138 (133-145) mmol/L Potassium 3.8 (3.5-5.0) mmol/L Chloride 101 (101-111) mmol/L Carbon Dioxide 28 (22-32) mmol/L Anion Gap 9 (2-11) mmol/L BUN 12 (6-24) mg/dL Creatinine 0.92 (0.51-0.95) mg/dL Est GFR ( Amer) 91.6 (>60) Est GFR (Non-Af Amer) 71.2 (>60) BUN/Creatinine Ratio 13.0 (8-20) Glucose 103 H (70-100) mg/dL Lactic Acid 0.9 (0.5-2.0) mmol/L Calcium 9.0 (8.6-10.3) mg/dL Magnesium 1.7 L (1.9-2.7) mg/dL Total Bilirubin 2.70 H (0.2-1.0) mg/dL AST 1151 H (13-39) U/L ALT 1405 H (7-52) U/L Alkaline Phosphatase 352 H (34-104) U/L C-Reactive Protein 26.76 H (< 5.00) mg/L Total Protein 6.9 (6.4-8.9) g/dL Albumin 3.8 (3.2-5.2) g/dL Globulin 3.1 (2-4) g/dL Albumin/Globulin Ratio 1.2 (1-3) Lipase 178 H (11.0-82.0) U/L Beta HCG, Quant < 0.60 mIU/mL Urine Color Urine Appearance Urine pH (5-9) Ur Specific [place] (1.010-1.030) Urine Protein (Negative) Urine Ketones (Negative) Urine Blood (Negative) Urine Nitrate (Negative) Urine Bilirubin (Negative) Urine Urobilinogen (Negative) Ur Leukocyte Esterase (Negative) Urine WBC (Auto) (Absent) Urine RBC (Auto) (Absent) Ur Squamous Epith Cells (Absent) Urine Bacteria (Absent) Urine Glucose (Negative) 12/27/16 Range/Units 16:18 WBC (3.5-10.8) 10^3/ul RBC (4.0-5.4) 10^6/ul Hgb (12.0-16.0) g/dl Hct (35-47) % MCV (80-97) fL MCH (27-31) pg MCHC (31-36) g/dl RDW (10.5-15) % Plt Count (150-450) 10^3/ul MPV (7.4-10.4) um3 Immature Gran % (Auto) (0-9) % Absolute Neuts (auto) (1.5-7.7) 10^3/ul Absolute Lymphs (auto) (1.0-4.8) 10^3/ul Absolute Monos (auto) (0-0.8) 10^3/ul Absolute Eos (auto) (0-0.6) 10^3/ul Absolute Basos (auto) (0-0.2) 10^3/ul Absolute Nucleated RBC 10^3/ul Neutrophils % (38-83) % Band Neutrophils % (0-8) % Lymphocytes % (25-47) % Reactive Lymphs % (0-6) % Monocytes % (0-13) % Eosinophils % (0-6) % Normal RBC Morphology Hypochromasia Microcytosis Hem Pathologist Commnt Sodium (133-145) mmol/L Potassium (3.5-5.0) mmol/L Chloride (101-111) mmol/L Carbon Dioxide (22-32) mmol/L Anion Gap (2-11) mmol/L BUN (6-24) mg/dL Creatinine (0.51-0.95) mg/dL Est GFR ( Amer) (>60) Est GFR (Non-Af Amer) (>60) BUN/Creatinine Ratio (8-20) Glucose (70-100) mg/dL Lactic Acid (0.5-2.0) mmol/L Calcium (8.6-10.3) mg/dL Magnesium (1.9-2.7) mg/dL Total Bilirubin (0.2-1.0) mg/dL AST (13-39) U/L ALT (7-52) U/L Alkaline Phosphatase (34-104) U/L C-Reactive Protein (< 5.00) mg/L Total Protein (6.4-8.9) g/dL Albumin (3.2-5.2) g/dL Globulin (2-4) g/dL Albumin/Globulin Ratio (1-3) Lipase (11.0-82.0) U/L Beta HCG, Quant mIU/mL Urine Color Gita Urine Appearance Cloudy Urine pH 6.0 (5-9) Ur Specific [place] 1.033 H (1.010-1.030) Urine Protein 2+(100 mg/dl) H (Negative) Urine Ketones Trace H (Negative) Urine Blood Negative (Negative) Urine Nitrate Negative (Negative) Urine Bilirubin 2+ H (Negative) Urine Urobilinogen Positive H (Negative) Ur Leukocyte Esterase Negative (Negative) Urine WBC (Auto) Trace(0-5/hpf) (Absent) Urine RBC (Auto) Absent (Absent) Ur Squamous Epith Cells Present H (Absent) Urine Bacteria Absent (Absent) Urine Glucose Negative (Negative) Assess/Plan/Problems-Billing Assessment: - Patient Problems (1) Acute hepatitis Current Visit: Yes Status: Acute Code(s): B17.9 - ACUTE VIRAL HEPATITIS, UNSPECIFIED SNOMED Code(s): 02009814 Comment: Pos serology for hep c, but other eitologies possible. Continue supportive care. CBC, CMP, INR 10/2. Many other labs sent out.
--- NOTE | 2016-12-30 23:16 | CONS ---
CONSULTATION REPORT: DATE OF CONSULT: 12/30/16 REQUESTING PHYSICIAN: Flo Beckford MD CONSULTING SERVICE: Infectious Disease. REASON FOR CONSULT: Hepatitis. IMPRESSION: 1. Epigastric pain, anorexia, right upper quadrant pain, transaminitis, hyperbilirubinemia, overall consistent with hepatitis. She has a positive hepatitis C antibody. It will be a little bit unusual for that to flare up, though it is possible, more commonly hepatitis B can do it though her core IgM and hepatitis B surface antigens were negative. The herpes viruses can cause infectious hepatitis, including CMV, EBV, HSV. She otherwise feels well. So, that seems a little bit less likely. Not felt to be a primary biliary issue per Dr. Beckford. 2. Past injection drug use. 3. Bilirubin yesterday was 4.5, the ALT up to 1400. RECOMMENDATION: 1. Stop Zosyn as this is not felt to be a gallbladder issue. 2. We will check an INR and EBV, CMV serology as well as an HIV antibody. HISTORY OF PRESENT ILLNESS: A 31-year-old woman admitted with epigastric right upper quadrant pain and anorexia. It came on a few days before admission. She had no fever, chills, or sweats. The pain was quite severe. It got worse with eating though she continued to eat small amounts over time but threw up a couple of hours after eating most times. She, on 12/27/16, came to the emergency room where she had an ultrasound of the gallbladder that showed thickening gallbladder wall, no gallbladder stones, felt to be consistent with acalculous cholecystitis. She had a HIDA scan that showed open cystic common bile ducts, no cholecystitis. There was hepatocellular dysfunction. She has had no fevers while she has been here. Her ALT was 1405 on admission, was 1300 on 12/28/16, up to 1470 yesterday, bilirubin has continued to slowly increase up to 4.5 yesterday. LFTs were not available today. Lipase was 170 on admission. White blood cell count 4. Yesterday, she had 21% reactive lymphocytes and she was found to have microcytic anemia. Hep C antibody was positive. She had last used injection drugs about 5 years ago. A test shortly after that was negative while she was in rehab. Hepatitis A IgM, hepatitis B surface antigen and B core IgM were negative here. PAST MEDICAL HISTORY: None. MEDICATIONS: 1. Zosyn 3.375 g IV every 8 hours. 2. Zofran. 3. Dilaudid. 4. Tylenol. ALLERGIES: None. FAMILY HISTORY: No tuberculosis or recurrent infections. SOCIAL HISTORY: She lives in [place] with her and children. She did have an episode 5 years ago of injection drug use, where she eventually ended up in rehab, has not used since then. She has no foreign travel. No sick contacts. No new sexual partners that she knows of. REVIEW OF SYSTEMS: A 14-point review of systems was negative except as noted above. PHYSICAL EXAM: Vital Signs: Temperature 37, heart rate 60, respiratory rate 16 , blood pressure 118/60, O2 sat 98% on room air. In general, she is awake, not in distress. Neurologic: She is oriented x3. Follows all commands. HEENT: There is no conjunctival hemorrhage. Oropharynx without lesions. Neck: Neck is supple without nuchal rigidity. Lymph Nodes: There is no inguinal, axillary , or epitrochlear lymphadenopathy. Heart has regular rate and rhythm without murmurs, rubs, or gallops. Lungs are clear to auscultation bilaterally. Abdomen: Soft. There are bowel sounds present. There is epigastric and right upper quadrant tenderness to palpation worse with a deep breath. There is no rebound. Skin: There is no rash or splinter hemorrhages. Musculoskeletal: There is no spine tenderness to palpation. LABORATORY DATA: White blood cell count 4.4, hemoglobin 10.3, platelets 154. Creatinine is 0.7 Please see impressions and recommendations as outlined above. Thank you for asking me to see Ms. Tinoco in consultation. [id number]/[facility] #: [id number] JAY
[2016-12-31] MEDS ORDERED: Polyethylene Glycol 3350* 17 GM PACKET PO PRN (01:23)
[2016-12-31] MEDS: HYDROmorphone INJ* 2 MG/ML CARPUJECT SYRINGE IV SLOW PU PRN ×5 (01:27→10:28)
[2016-12-31 05:44] LABS: Hematocrit 31 % (35-47); Hemoglobin 10.2 g/dl (12.0-16.0); Mean Corpuscular HGB Conc 33 g/dl (31-36); Mean Corpuscular Hemoglobin 25 pg (27-31); Mean Corpuscular Volume 76 fL (80-97); Mean Platelet Volume 8 um3 (7.4-10.4); Red Blood Count 4.08 10^6/ul (4.0-5.4); Red Cell Distribution Width 17 % (10.5-15); White Blood Count 3.3 10^3/ul (3.5-10.8)
[2016-12-31 05:50] LABS: Comments Flag Yes
[2016-12-31 05:51] LABS: Add Diff/Slide Review? Slide Review Added
[2016-12-31 05:54] LABS: Albumin 3.2 g/dL (3.2-5.2); BUN/Creatinine Ratio 7.5 (8-20); Calcium 8.4 mg/dL (8.6-10.3); Direct Bilirubin 1.7 mg/dL (0.03-0.18); EGFR Non-African American 102.7 (>60); Globulin 3.1 g/dL (2-4); Indirect Bilirubin 0.9 mg/dL (0.3-1.0); Potassium 3.8 mmol/L (3.5-5.0); Total Bilirubin 2.6 mg/dL (0.2-1.0); Total Protein 6.3 g/dL (6.4-8.9)
[2016-12-31] MEDS ORDERED: Omeprazole CAP* 20 MG PO SCH (06:00)
--- NOTE | 2016-12-31 08:49 | PN ---
Progress Note - Progress Note Date of Service: 12/31/16 SOAP: Subjective: Still with some right upper abdominal pain but slightly improved Tolerating soft diet Ambulating in halls Objective: Temp Pulse Resp BP Pulse Ox 98.3 F 64 18 111/74 97 12/31/16 07:32 12/31/16 07:32 12/31/16 08:20 12/31/16 07:32 12/31/16 07:32 Intake & Output 12/29/16 12/30/16 12/31/16 01/01/17 06:59 06:59 06:59 06:59 Intake Total 4883 1608 4376 225 Output Total 2625 3500 4350 900 Balance 2258 -1892 26 -675 Intake: IV Fluids 2228 1162 2101 NS (0.9%) 984 1047 1968 Zosyn 149 133 IVPB 2055 206 NS (0.9%) 1986 Zosyn 69 206 Oral 434 339 5090 225 Output: Urine 2625 3500 4350 900 PEX:Comfortable Lungs are clear Abd is soft and non-distended. Bowel sounds are present. There is some right upper quadrant pain without mass or rebound//guarding. No peritoneal irritation. Laboratory Results - last 24 hr 12/28/16 12/29/16 12/31/16 10:50 05:21 04:40 WBC RBC Hgb Hct MCV MCH MCHC RDW Plt Count MPV Neut % (Auto) Lymph % (Auto) [place] % (Auto) Eos % (Auto) Baso % (Auto) Absolute Neuts (auto) Absolute Lymphs (auto) Absolute Monos (auto) Absolute Eos (auto) Absolute Basos (auto) Absolute Nucleated RBC Nucleated RBC % INR (Anticoag Therapy) Sodium 136 Potassium 3.8 Chloride 103 Carbon Dioxide 29 Anion Gap 4 BUN 5 L Creatinine 0.67 Est GFR ( Amer) 132.0 Est GFR (Non-Af Amer) 102.7 BUN/Creatinine Ratio 7.5 L Glucose 122 H Calcium 8.4 L Total Bilirubin 2.60 H D Direct Bilirubin 1.70 H Indirect Bilirubin 0.9 AST 668 H ALT 982 H Alkaline Phosphatase 252 H Total Protein 6.3 L Albumin 3.2 Globulin 3.1 Albumin/Globulin Ratio 1.0 Hepatitis A IgM Ab Nonreactive Hep Bs Antigen Nonreactive Hep B Core IgM Ab Nonreactive Hepatitis C Antibody High reactive H HIV 1&2 Antibody Nonreactive 12/31/16 12/31/16 04:40 04:40 WBC 3.3 L RBC 4.08 Hgb 10.2 L Hct 31 L MCV 76 L MCH 25 L MCHC 33 RDW 17 H Plt Count 197 MPV 8 Neut % (Auto) 35.0 L Lymph % (Auto) 51.9 H [place] % (Auto) 9.3 H Eos % (Auto) 2.9 Baso % (Auto) 0.9 Absolute Neuts (auto) 1.2 L Absolute Lymphs (auto) 1.7 Absolute Monos (auto) 0.3 Absolute Eos (auto) 0.1 Absolute Basos (auto) 0 Absolute Nucleated RBC 0.01 Nucleated RBC % 0.3 INR (Anticoag Therapy) 1.04 Sodium Potassium Chloride Carbon Dioxide Anion Gap BUN Creatinine Est GFR ( Amer) Est GFR (Non-Af Amer) BUN/Creatinine Ratio Glucose Calcium Total Bilirubin Direct Bilirubin Indirect Bilirubin AST ALT Alkaline Phosphatase Total Protein Albumin Globulin Albumin/Globulin Ratio Hepatitis A IgM Ab Hep Bs Antigen Hep B Core IgM Ab Hepatitis C Antibody HIV 1&2 Antibody Assessment: Right upper quadrant abdominal pain ? Acute hepatitis--Dr. Howard's note appreciated HIDA scan normal-no acute cholecystitis LFT's improved Viral studies pending Plan: Elinsyn d/c'd Advance diet to low fat D/C IVF Await labs Would like to d/c home today if OK with ID/hospitalist with outpatient follow up. If further inpatient care needed, would prefer to transfer to hospitalist service as there is no surgical intervention planned and she is OK for d/c from surgical standpoint.
[2016-12-31] MEDS ORDERED: Magnesium Hydroxide LIQ* 30 ML UDC PO ONE (10:03)
[2016-12-31] MEDS ORDERED: Magnesium Hydroxide LIQ* 30 ML UDC ONE (10:05)
[2016-12-31 10:49] LABS: EBV Capsid Ag IgG Ab Positive (Negative); EBV Capsid Ag IgM Ab Negative (Negative)
[2016-12-31] MEDS ORDERED: oxyCODONE/Acetamin 5/325 MG* TAB PO PRN ×2 (11:43→15:47)
[2016-12-31 12:12] VITALS: BP 123/84
[2016-12-31 15:41] LABS: Hepatitis C RNA Quantitative 339000 IU/mL (Undetected)
[2016-12-31 23:58] LABS: Hepatitis C Genotype 1a (Undetected)
--- NOTE | 2017-01-01 04:06 | DS ---
Amended report to enter cosigning physician on report. CC: Dr. Bam Howard* DISCHARGE SUMMARY: DATE OF ADMISSION: 12/27/16 DATE OF DISCHARGE: 12/31/16 ATTENDING SURGEON: Dr. Flo Beckford* (dictated by FREDERICK Tidwell). HOSPITAL COURSE: Please refer to admission history and physical for admission details as well as consults from Dr. Bailon and Dr. Howard. The patient was admitted with symptoms of nausea, vomiting and midepigastric and right upper quadrant abdominal pain. An initial ultrasound of the gallbladder showed markedly thickened gallbladder wall up to 2 cm with pericholecystic fluid. However, there were no gallstones and the common bile duct was normal at 4 mm. Her liver function tests were markedly elevated with transaminases each over 1000. Total bilirubin initially was 2.7. A subsequent HIDA scan showed patent cystic duct and patent common duct effectively ruling out acute cholecystitis. Further lab work showed a highly reactive positive for hepatitis C with nonreactive for hepatitis A and B. Her INR was normal at 1.04. Liver functions have improved from her peak with peak bilirubin of 4.5 today down to 2.6. AST peaked at 1459 today down to 668. ALT peaked at 1469, today down to 982. Alkaline phosphatase has also gradually improved. She feels somewhat better today and was seen and examined by Dr. Beckford this morning. His exam at that time showed patient appearing comfortable with clear lungs. Abdomen soft and nondistended with bowel sounds present. There is still some right upper quadrant tenderness without mass or rebound or guarding. Her antibiotics were discontinued. She has tolerated diet reasonably well and was transitioned to oral pain medication. She feels comfortable to go home today with back follow up to Dr. Howard for further treatment. She was given instructions to contact our office if there are any significant exacerbations of her pain and/ or nausea or vomiting. She will otherwise followup with Dr. Howard as directed. FREDERICK TIDWELL [id number]/[facility] #: [id number] MTDD
[2017-01-01 15:56] LABS: Toxoplasma IgG Antibody Negative (Negative); Toxoplasma IgG Antibody Index <3 IU/mL; Toxoplasma IgM Antibody Negative (Negative)
== END 2016-12-31 16:04 | disposition home or self-care (01) | DRG 442 ==
LOC: ED 15:11 → SSU 19:30 → OBSVTOIN 12-29 10:00
PROVIDERS: ADMIT Surgery; ATTEND Surgery
DX: B17.10 Acute hepatitis C without hepatic coma (principal); R17 Unspecified jaundice; D50.9 Iron deficiency anemia, unspecified; N92.0 Excessive and frequent menstruation with regular cycle; G89.4 Chronic pain syndrome; L81.8 Other specified disorders of pigmentation
CPT/HCPCS: 36415; 76705; 78226; 80048; 80053; 80074; 80076; 81003; 81015; 83605; 83690; 83735; 84443; 84702; 85025; 85060; 85610; 86038; 86140; 86308; 86644; 86645; 86664; 86665; 86703; 86777; 86778; 87522; 87902; A9270-GY; A9537; G0378; J1170; J2270; J2405; J2543; J3475